=== PATIENT | female | born 1945 | race Caucasian/White ===

== ENCOUNTER 2020-06-21 05:26 | Day surgery (SDC) | payer MEDICARE, BC ==
[~2020-06-21] VITALS: Ht 147.3 cm; Wt 65.8 kg
[2020-06-21] VITALS (10 sets, daily range): BP systolic 119–148; BP diastolic 60–92
[~2020-06-21 05:26] MED LIST: LEVO100T PO; ringers solution, lacted 1,000 ML IV SCH
[2020-06-21] MEDS ORDERED: clindamycin-Cleocin 900mg/D5W 50 ML IV ONE (05:30)
[2020-06-21] MEDS ORDERED: famotidine 20mg tablet PO ONE (05:30)
[2020-06-21] MEDS ORDERED: LIDOcaine 1% 30ml preserv. free vial ONE (06:54)
[2020-06-21] MEDS ORDERED: BUPIVAcaine/PF 2.5 mg/ml (0.25%) 30ml vial ONE (06:54)
[2020-06-21] MEDS ORDERED: fentaNYL/PF 50MCG/1 ML 2ML syringe ONE (07:32)
[2020-06-21] MEDS ORDERED: midazolam 1 mg/ML 2ml injection ONE (07:32)
[2020-06-21] MEDS ORDERED: propofol inj 20 ML IV ONE (07:34)
[2020-06-21] MEDS ORDERED: rocuronium 10mg/ml inj IV ONE (07:50)
[2020-06-21] MEDS ORDERED: ondansetron/PF 4mg/2ml inj IV PRN (08:10)
[2020-06-21] MEDS ORDERED: morphine 2 MG/ML inj. syringe IV PRN (08:10)
[2020-06-21] MEDS ORDERED: morphine 4 MG/ML inj SYRINge IV PRN (08:10)
[2020-06-21] MEDS ORDERED: meperidine/PF 25mg/ml syringe IV PRN ×3 (08:10)
[2020-06-21] MEDS ORDERED: ringers solution, lacted 1,000 ML IV SCH (08:10)
[2020-06-21] MEDS ORDERED: proCHLORperazine 10 MG/2 ml inj IV PRN (08:10)
[2020-06-21] MEDS ORDERED: dexamethasone sod phosphate 4mg/ml inj. ONE (08:17)
[2020-06-21] MEDS ORDERED: ondansetron/PF 4mg/2ml inj ONE (08:17)
[2020-06-21] MEDS ORDERED: neostigmine methylsulfate 1 MG/ML 10ml vial ONE (08:20)
[2020-06-21] MEDS ORDERED: glycopyrrolate 0.2mg/ml inj ONE (08:24)
--- NOTE | 2020-06-21 08:38 | NUR ---
Received from OR via [facility], accompanied by Anesthesiologist DR KIRK and report given by Anesthesiologist. PT DROWSY, DENIES PAIN, ABDOMEN W/3 LAP SITES W/BANDAIDS CDI. Addendum: 06/21/20 at 0850 by Lindsey Henley RN Amended: Links added.
[2020-06-21] MEDS ORDERED: HYDROcodone/acetaminophen 5mg/325mg tablet PO PRN (08:45)
[2020-06-21] MEDS ORDERED: acetaminophen 325mg tablet PO ONE (08:55)
--- NOTE | 2020-06-21 10:08 | NUR ---
PT UP AND ABLE TO AMBULATE SAFELY, PAIN UNDER CONTROL, D/C INSTRUCTIONS GONE OVER AND GIVEN TO PT WHO VERBALIZED UNDERSTANDING. PT D/CD TO HOME VIA W/C TO PRIVATE VEHICLE W/O INCIDENT. Addendum: 06/21/20 at 1027 by Lindsey Henley RN Amended: Links added.
== END 2020-06-21 10:08 | disposition home or self-care (01) ==
LOC: PAS 05:26
PROVIDERS: ATTEND Surgery
DX: K40.90 Unilateral inguinal hernia, without obstruction or gangrene, not specified as recurrent (principal); K43.9 Ventral hernia without obstruction or gangrene; E06.3 Autoimmune thyroiditis; Z79.899 Other long term (current) drug therapy; Z93.0 Tracheostomy status; Z98.49 Cataract extraction status, unspecified eye; Z88.0 Allergy status to penicillin; Z88.8 Allergy status to other drugs, medicaments and biological substances; Z82.49 Family history of ischemic heart disease and other diseases of the circulatory system; Z83.3 Family history of diabetes mellitus; Z83.49 Family history of other endocrine, nutritional and metabolic diseases
CPT/HCPCS: 49652; 82948; 93005; C1781; J1100; J2001; J2250; J2405; J2704; J2710; J3010; J3490; A4215; A4618; J7120

== ENCOUNTER 2021-04-16 07:28 | Day surgery (SDC) | payer MEDICARE, BC ==
[~2021-04-16] VITALS: Ht 144.8 cm; Wt 67.2 kg
[2021-04-16] VITALS (13 sets, daily range): BP systolic 111–142; BP diastolic 60–79
[~2021-04-16 07:28] MED LIST changes: +clindamycin-Cleocin 900mg/D5W 50 ML IV ONE; +famotidine 20mg tablet PO ONE
[2021-04-16 08:41] LABS: BASOPHILS % (AUTO) 1.1 % (0-1); EOSINOPHILS # (AUTO) 0.2 X10'3 (0-0.9); LYMPHOCYTES # (AUTO) 1.5 X10'3 (1.1-4.8); LYMPHOCYTES % (AUTO) 32.9 % (21-51); MEAN CORPUSCULAR HEMOGLOBIN 32.7 PG (27.0-31.0); MEAN CORPUSCULAR VOLUME 93.6 FL (78-98); MONOCYTES # (AUTO) 0.5 X10'3 (0-0.9); MONOCYTES % (AUTO) 9.9 % (2-12); NEUTROPHILS # (AUTO) 2.4 X10'3 (1.8-7.7); NEUTROPHILS % (AUTO) 52.1 % (42-75); PRE OP HEMATOCRIT 41.7 % (35.0-45.0); PRE OP HEMOGLOBIN 14.6 g/dL (12.0-16.0); PRE OP PLATELET COUNT 219 X10'3 (140-440); RED BLOOD COUNT 4.45 X10'6 (4.20-5.60); RED CELL DISTRIBUTION WIDTH 13.2 % (11.5-14.5)
[2021-04-16 08:52] LABS: ALBUMIN 4.2 G/DL (3.4-5.0); ALBUMIN/GLOBULIN RATIO 1.3 (1.1-1.5); ALKALINE PHOSPHATASE 58 IU/L (46-116); BLOOD UREA NITROGEN 14 MG/DL (7-18); BUN/CREATININE RATIO 20.6 (6.6-38.0); CALCIUM 8.7 MG/DL (8.5-10.1); CHLORIDE 98 MMOL/L (99-107); CREATININE 0.68 MG/DL (0.40-0.90); PRE OP ALT 19 U/L (30-65); PRE OP ANION GAP 10 (8-16); PRE OP AST 28 U/L (10-37); PRE OP BILIRUB, TOTAL 0.7 MG/DL (0.0-1.0); PRE OP GLUCOSE 88 MG/DL (70-104); PRE OP POTASSIUM 3.9 MMOL/L (3.4-5.1); PRE OP SODIUM 134 MMOL/L (135-145); TOTAL CARBON DIOXIDE 25.6 MMOL/L (24-32); TOTAL PROTEIN 7.4 G/DL (6.4-8.2); eGFR 84 ML/MIN
[2021-04-16] MEDS ORDERED: BUPIVAcaine/PF 2.5 mg/ml (0.25%) 30ml vial ONE (10:15)
[2021-04-16] MEDS ORDERED: LIDOcaine 1% 30ml preserv. free vial ONE (10:16)
[2021-04-16] MEDS ORDERED: midazolam 1 mg/ML 2ml injection ONE (10:39)
[2021-04-16] MEDS ORDERED: fentaNYL/PF 50MCG/1 ML 2ML syringe ONE (10:39)
[2021-04-16] MEDS ORDERED: propofol inj 20 ML IV ONE (10:41)
[2021-04-16] MEDS ORDERED: proCHLORperazine 10 MG/2 ml inj IV PRN (11:05)
[2021-04-16] MEDS ORDERED: ondansetron/PF 4mg/2ml inj IV PRN (11:05)
[2021-04-16] MEDS ORDERED: meperidine/PF 25mg/ml syringe IV PRN ×2 (11:05)
[2021-04-16] MEDS ORDERED: ondansetron/PF 4mg/2ml inj ONE (11:05)
[2021-04-16] MEDS ORDERED: morphine 2 MG/ML inj. syringe IV PRN (11:05)
[2021-04-16] MEDS ORDERED: ringers solution, lacted 1,000 ML IV SCH (11:05)
[2021-04-16] MEDS ORDERED: morphine 4 MG/ML inj SYRINge IV PRN (11:05)
[2021-04-16] MEDS ORDERED: dexamethasone sod phosphate 4mg/ml inj. ONE (11:05)
--- NOTE | 2021-04-16 11:39 | NUR ---
Received from OR via , accompanied by Anesthesiologist DR KIRK and report given by Anesthesiolgist.AWAKENS TO VOICE. VITALS STABLE. DRESSING DI. YEYO PAIN. ABD SOFT.
[2021-04-16] MEDS ORDERED: HYDROcodone/acetaminophen 5mg/325mg tablet PO PRN ×2 (11:50→11:55)
[2021-04-16] MEDS ORDERED: acetaminophen 325mg tablet PO PRN (12:00)
[2021-04-16] MEDS: meperidine/PF 25mg/ml syringe IV PRN ×2 (12:22→13:06)
[2021-04-16] MEDS ORDERED: ibuprofen tablet 400 MG TABLET PO SCH (12:30)
[2021-04-16] MEDS ORDERED: acetaminophen 1,000mg/100ml IV 100 ML IV ONE (13:10)
[2021-04-16] MEDS ORDERED: ketorolac trometh. 30mg/ml inj. IV ONE (13:10)
--- NOTE | 2021-04-16 13:49 | NUR ---
AWAKE AND ORIENTED. VITALS STABLE. DRESSING DI. STATES PAIN IMPROVING. HOME WITH HER SPOUSE AT THIS TIME.
== END 2021-04-16 13:49 | disposition home or self-care (01) ==
LOC: PAS 07:28
PROVIDERS: ATTEND Surgery
DX: K43.9 Ventral hernia without obstruction or gangrene (principal); E03.9 Hypothyroidism, unspecified; Z98.890 Other specified postprocedural states; Z88.0 Allergy status to penicillin; Z88.8 Allergy status to other drugs, medicaments and biological substances; Z79.899 Other long term (current) drug therapy; Z20.822 Contact with and (suspected) exposure to COVID-19
CPT/HCPCS: 36415; 49560; 49568; 80053; 82948; 84443; 85025; 87635; 93005; C1781; C9803; J0131; J1100; J1885; J2175; J2250; J2405; J2704; J3010; J3490; J7030; J7120; Z7506; Z7508; Z7512; A4215; A4618; A7000

== ENCOUNTER 2022-06-13 11:07 | Outpatient (CLI) | payer MEDICARE, BC ==
[~2022-06-13 11:07] MED LIST changes: -LEVO100T PO; +LEVO88TA2 PO; -clindamycin-Cleocin 900mg/D5W 50 ML IV ONE; -famotidine 20mg tablet PO ONE; -ringers solution, lacted 1,000 ML IV SCH
== END 2022-06-13 23:59 | disposition home or self-care (01) ==
LOC: RAD 11:07
PROVIDERS: ATTEND Nurse Practitioner Family
DX: K86.89 Other specified diseases of pancreas (principal); R10.9 Unspecified abdominal pain
CPT/HCPCS: 76700

== ENCOUNTER 2022-07-02 09:30 | Outpatient (CLI) | payer MEDICARE, BC | END 2022-07-02 23:59 | disposition home or self-care (01) | LOC: RAD 09:30 | PROVIDERS: ATTEND Physician Assistant Surgical | DX: D17.71 Benign lipomatous neoplasm of kidney (principal); R16.0 Hepatomegaly, not elsewhere classified; N20.0 Calculus of kidney; R07.9 Chest pain, unspecified | CPT/HCPCS: 71250; 74150 ==

== ENCOUNTER 2022-11-19 14:39 | Outpatient (CLI) | payer MEDICARE, BC | END 2022-11-19 23:59 | disposition home or self-care (01) | LOC: RAD 14:39 | PROVIDERS: ATTEND Obstetrics & Gynecology | DX: N28.1 Cyst of kidney, acquired (principal); R31.0 Gross hematuria | CPT/HCPCS: 76770 ==